=== PATIENT | female | born 1995 | race Caucasian/White ===

== ENCOUNTER 2017-03-05 10:57 | Emergency (ER) | payer OTHER ==
[~2017-03-05] VITALS: Ht 165.1 cm; Wt 72.6 kg
[2017-03-05 11:41] LABS: *BILIRUBIN,URIN NEGATIVE (NEGATIVE); *BLOOD, URINE Trace-lysed (NEGATIVE); *CLARITY,URINE CLEAR (CLEAR); *COLOR,URINE YELLOW (YELLOW); *KETONES,URINE NEGATIVE (NEGATIVE); *PROTEIN,URINE NEGATIVE (NEGATIVE); *UROBILINOGEN,URINE 0.2 E.U./dl (NORMAL); LEUKOCYTE ESTERASE ,URINE TRACE (NEGATIVE); NITRITE, URINE NEGATIVE (NEGATIVE); UGLUCOSE NEGATIVE (NEGATIVE)
[2017-03-05 12:00] LABS: BACTERIA,URINE FEW /HPF (NONE SEEN); RBC,URINE 0-3 /HPF (0-3); SQUAMOUS EPITHELIAL CELL,UR FEW /HPF (NONE SEEN)
[2017-03-05 12:03] LABS: BASOPHILS % (AUTO) 0.5 % (0.0-2.0); EOSINOPHILS # (AUTO) 0.4 K/uL (0.0-0.7); EOSINOPHILS % (AUTO) 4.9 % (0.0-7.0); HEMATOCRIT 36.3 % (37-47); LYMPHOCYTES # (AUTO) 3.3 K/UL (0.8-4.8); LYMPHOCYTES % (AUTO) 37.6 % (20.5-51.5); MEAN CORPUSCULAR HEMOGLOBIN 30.6 UUG (27.0-31.0); MEAN CORPUSCULAR HGB CONC 33 g/dL (32.0-37.0); MEAN CORPUSCULAR VOLUME 92.9 FL (81.0-99.0); MONOCYTES # (AUTO) 0.4 K/UL (0.1-1.30); MONOCYTES % (AUTO) 4.9 % (0.0-11.0); NEUTROPHILS # (AUTO) 4.7 K/UL (1.8-8.9); NEUTROPHILS % (AUTO) 52.1 % (38.5-71.5); PLATELET COUNT (AUTO) 383 K/UL (150-450); RED BLOOD CELL COUNT(AUTO) 3.91 MIL/UL (4.2-5.4); WHITE BLOOD COUNT (AUTO) 8.8 K/UL (4.0-11.2)
[2017-03-05 12:12] LABS: CREATININE 0.6 mg/dL (0.6-1.3); POTASSIUM 3.7 mmol/L (3.5-5.1)
[2017-03-05 12:18] LABS: BILIRUBIN,DIRECT 0.1 mg/dL (0.0-0.2); BILIRUBIN,TOTAL 0.4 mg/dL (0.2-1.0); TOTAL PROTEIN, SERUM 6.5 g/dL (6.4-8.2)
--- NOTE | 2017-03-05 14:10 | NUR ---
Patient discharged to home in stable conditon. Written and verbal after care instructions given. Patient verbalizes understanding of instructions.pt says feels better, pt walks in steady gait. pt denies nausea.
[2017-03-05 14:11] VITALS: BP 110/56
== END 2017-03-05 14:12 | disposition home or self-care (01) ==
LOC: ER 10:57
DX: R42 Dizziness and giddiness (principal)
CPT/HCPCS: 36415; 70496; 70498; 80048; 80076; 81001; 83690; 84484; 84703; 85025; 93005; 96360; 99285; A4663; J7030; J7050; Q9967; 70030-TC

== ENCOUNTER 2017-08-06 09:48 | Emergency (ER) | payer OTHER ==
[~2017-08-06] VITALS: Ht 162.6 cm; Wt 66.7 kg
--- NOTE | 2017-08-06 10:53 | NUR ---
Patient discharged to home in stable conditon. Written and verbal after care instructions given. Patient verbalizes understanding of instructions.
[2017-08-06 10:55] VITALS: BP 101/69
== END 2017-08-06 10:56 | disposition home or self-care (01) ==
LOC: ER 09:51
DX: M25.531 Pain in right wrist (principal); M79.631 Pain in right forearm; V43.52XA Car driver injured in collision with other type car in traffic accident, initial encounter; Y92.410 Unspecified street and highway as the place of occurrence of the external cause; Y93.89 Activity, other specified; Y99.8 Other external cause status
CPT/HCPCS: 73090; A4663

== ENCOUNTER 2017-10-27 08:46 | Emergency (ER) | payer OTHER ==
[~2017-10-27] VITALS: Ht 162.6 cm; Wt 72.6 kg
[2017-10-27] MEDS ORDERED: IBUPROFEN 600 MG TABLET ONE (09:38)
--- NOTE | 2017-10-27 09:40 | NUR ---
Patient discharged to home in stable conditon. Written and verbal after care instructions given. Patient verbalizes understanding of instructions.
[2017-10-27 09:45] VITALS: BP 123/65
[2017-10-27] MEDS ORDERED: IBUPROFEN 600 MG TABLET PO ONE (09:45)
[2017-10-27] MEDS ORDERED: AMLODIPINE 5 MG TABLET ONE (09:45)
[2017-10-27] MEDS ORDERED: AMLODIPINE 5 MG TABLET PO ONE (09:45)
== END 2017-10-27 09:46 | disposition home or self-care (01) ==
LOC: ER 08:46
DX: R51 Headache (principal)
CPT/HCPCS: A4663

== ENCOUNTER 2019-12-09 09:14 | Emergency (ER) | payer OTHER ==
[~2019-12-09] VITALS: Ht 162.6 cm; Wt 78.5 kg
--- NOTE | 2019-12-09 09:30 | NUR ---
Patient ambulating with steady gait. A&O x4. c/o left sided chest pressure that started 2 hrs [employer]. patient states senstation started suddenly and unprovoked. denies any PMH. Denies any RAUSCH, Dizziness, Blurred vision. Breathing even and unlabored. No cough or SOB noted. Denies any / GI distress. Safety precautions implemented. s/r up x2.
--- NOTE | 2019-12-09 09:56 | NUR ---
Dr. Bartholomew at bedside for MSE
[2019-12-09] MEDS ORDERED: IBUPROFEN 800 MG TABLET PO ONE (10:00)
[2019-12-09] MEDS ORDERED: IBUPROFEN 800 MG TABLET ONE (10:12)
[2019-12-09 10:37] LABS: *URINE HCG, QUAL NEGATIVE (NEGATIVE)
[2019-12-09 10:53] LABS: POTASSIUM 3.9 mmol/L (3.5-5.1)
[2019-12-09 10:58] LABS: BILIRUBIN,DIRECT 0.3 mg/dL (0.0-0.2); BILIRUBIN,TOTAL 1.6 mg/dL (0.2-1.0); TOTAL PROTEIN, SERUM 7.8 g/dL (6.4-8.2)
[2019-12-09 11:01] LABS: BASOPHILS % (AUTO) 0.2 % (0.0-2.0); EOSINOPHILS # (AUTO) 0.2 K/uL (0.0-0.7); EOSINOPHILS % (AUTO) 1.9 % (0.0-7.0); HEMATOCRIT 43.6 % (31.2-41.9); HEMOGLOBIN 14.8 g/dL (10.9-14.3); LYMPHOCYTES # (AUTO) 2.3 K/uL (20.0-40.0); LYMPHOCYTES % (AUTO) 27.1 % (20.5-51.5); MEAN CORPUSCULAR HEMOGLOBIN 32.4 uug (24.7-32.8); MEAN CORPUSCULAR HGB CONC 34 g/dL (32.3-35.6); MEAN CORPUSCULAR VOLUME 95.4 fL (75.5-95.3); MONOCYTES # (AUTO) 0.6 K/uL (2.0-10.0); NEUTROPHILS # (AUTO) 5.5 K/uL (1.8-8.9); NEUTROPHILS % (AUTO) 63.8 % (38.5-71.5); PLATELET COUNT (AUTO) 348 K/uL (179-408); RED BLOOD CELL COUNT(AUTO) 4.57 MIL/uL (3.63-4.92); WHITE BLOOD COUNT (AUTO) 8.6 K/uL (3.8-11.8)
--- NOTE | 2019-12-09 11:45 | NUR ---
Patient discharged to home in stable condition. Written and verbal after care instructions given. Patient verbalizes understanding of instructions. Stressed follow up or return to ER for worsening s/s. Patient ambulating with steady gait. NAD noted
[2019-12-09 11:57] VITALS: BP 128/83
== END 2019-12-09 11:45 | disposition home or self-care (01) ==
LOC: ER 09:14
DX: R07.2 Precordial pain (principal)
CPT/HCPCS: 36415; 70030-TC; 71046; 83690; 84703; 85025; 93005; A4663